=== PATIENT | female | born 1960 | race Caucasian/White ===

== ENCOUNTER → 2017-01-13 | Outpatient (CLI) | payer OTHER ==
[~2017-01-13] MED LIST: ACETAMINOPHEN1 EACH PO; ACID REDUCER150 MG PO; BUPROPION HCL150 M2 PO; FLONASE ALLERG9.9 ML; PRAVACHOL20 MG PO
--- NOTE | ~2017-01-13 | MY11 ---
[facility] A Service of [facility] RADIOLOGY TEXT RESULTS PATIENT: JAMIL AVILA LOCATION: [facility] : 62 UNIT #: [id number] AGE: [address]: Ronny Murray MD SEX: F ORDER DR: [id number] [facility] [address] [place], [place] [address] [id number] O MR#: [id number] Acc #: [id number] NAME: JAMIL AVILA. : 1960 SEX: F STUDY DATE/TIME: 01/13/2017 13:33 UNIT: [facility] ROOM: STUDY DESCRIPTION: MY Mammogram Screening Dig Robert Attending Physician: Ronny Murray M.D. Ordering Physician: Ronny Murray M.D. Primary Care Physician: Ronny Murray M.D. MEDICAL IMAGING REPORT This report is preliminary unless electronic signature is present EXAM Digital screening mammogram 01/13/2017. [facility] HISTORY 56-year-old woman no risk elevation. Annual screening COMPARISON Outside mammograms now available 01/13/2008, 12/20/2011, [facility]. FINDINGS Digital imaging of each breast was completed utilizing a two-view examination of each breast in craniocaudal and mediolateral-oblique projections. Review and interpretation of digital mammograms include a second review in conjunction with FDA-approved CAD device. There is a normal parenchymal presentation bilaterally consistent with the patient's age. There are no breast masses imaged and no parenchymal asymmetry is visualized. There are no suspicious microcalcifications and I see no focal architectural disturbance. IMPRESSION Negative screening digital mammogram. One-year followup recommended. Addendum: Breast parenchyma is fatty replaced. Patients over the age of 40 are entered into a reminder system with target due date for the next mammogram. A result letter will also be sent to the patient. BIRADS: 1 Negative [facility] A Service [facility] RADIOLOGY TEXT RESULTS PATIENT: JAMIL AVILA LOCATION: [facility] : 62 UNIT #: [id number] AGE: [address]: Ronny Murray MD SEX: F ORDER DR: Dictated by... Nathanael Arellano M.D. THIS IS AN ELECTRONICALLY VERIFIED REPORT Nathanael Arellano M.D. at 01/15/2017 9:32 AM UMAIR/candy TD: 01/15/2017 08:42 JOB #: [id number] MEDICAL IMAGING REPORT Page 1 of 1 COPY
== END | disposition home or self-care (01) ==
LOC: CWCC 12:32
DX: Z12.31 Encounter for screening mammogram for malignant neoplasm of breast (principal); R92.8 Other abnormal and inconclusive findings on diagnostic imaging of breast
CPT/HCPCS: G0202

== ENCOUNTER → 2017-02-06 | Day surgery (SDC) | payer OTHER ==
--- NOTE | ~2017-02-06 | OR ---
Unit #: [id number] #: [id number] Patient: JAMIL AVILA [id number] [facility]. [address] [place], [place] [address] [id number] O MR#: [id number] NAME: JAMIL AVILA ROOM: Date of Procedure: 02/06/2017 Admission Date: 02/06/2017 Surgeon: Jose Huynh Jr., M.D. : 1960 Attending Physician: Jose Huynh Jr., M.D. Primary Care Physician: Ronny Murray M.D. OPERATIVE REPORT INDICATIONS FOR PROCEDURE The patient is a 56-year-old white female, who has had a mass develop of the right posterior neck, which was previously excised and now it has enlarged in size. She is brought in at this time for reexcision of this mass. She understands the procedure including the risks, including that of recurrence, bleeding, infection, poor healing, nerve injury and chronic pain, and consents. 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 ANESTHESIA 1% Xylocaine with epinephrine locally. PROCEDURE PERFORMED Excision of recurrent mass of the right posterior neck. DESCRIPTION OF PROCEDURE The patient was placed in the left lateral decubitus position. After being prepped and draped in routine fashion, she was anesthetized locally in the area of the recurrent mass along the posterior neck with 1% Xylocaine with epinephrine. A small elliptical portion of skin was taken over the mass and the mass itself was excised with a #10 blade scalpel from the surrounding tissue down to the fascia of the muscle. After it was completely removed, hemostasis was achieved with Bovie cautery. Specimen was sent to pathology and the deeper tissue was approximated with interrupted 3-0 Vicryl sutures. Skin edges were approximated with stainless-steel skin clips and skin stapling device. Sterile dressings were applied externally. Estimated blood loss was minimal, less than 20 mL. The patient received no fluids during the procedure. Sponges and instrument counts were correct x3. No drains were used. No complications. The patient was taken to the recovery room with stable vital signs in satisfactory condition. Dictated by... Jose Huynh Jr., M.D. Unit #: [id number] #: [id number] Patient: JAMIL AVILA JUSTUS/bernardo TD: 02/06/2017 17:25 JOB #: [id number] OPERATIVE REPORT Page 1 of 1 X Jose Huynh MD PROCEDURE OPERATIVE NOTE
== END | disposition home or self-care (01) ==
LOC: CSUR 08:10
DX: M79.89 Other specified soft tissue disorders (principal); Z87.891 Personal history of nicotine dependence; Z79.899 Other long term (current) drug therapy; Z90.710 Acquired absence of both cervix and uterus; Z98.51 Tubal ligation status; Z98.890 Other specified postprocedural states
CPT/HCPCS: 88304